=== PATIENT | female | born 2000 | race Caucasian/White ===

== ENCOUNTER 2023-09-25 21:36 | Emergency (ER) | payer OTHER, SELFPAY ==
[2023-09-25 21:50] VITALS: BP 134/76; PULSE 98; RESP 18; TEMP 39.4; O2SAT 97; BMI 31.8
[2023-09-25] MEDS: Ibuprofen 800 MG TABLET PO (21:59)
[2023-09-25] MEDS: Ondansetron ODT 4 MG TAB.RAPDIS TRANSLINGU (21:59)
[2023-09-25 22:36] LABS: Influenza A PCR POSITIVE (Negative); Influenza B PCR NEGATIVE (Negative); Resp Syncy Virus RNA Qual PCR NEGATIVE (Negative); SARS COV2 PCR INHOUSE NEGATIVE (Negative)
--- NOTE | 2023-09-25 22:40 | ED_ITS ---
HPI - Nausea/Vomiting/Diarrhea General Chief complaint: Nausea/Vomiting/Diarrhea Stated complaint: vomiting all day, stomach pain Time Seen by Provider: 09/25/23 22:30 Source: patient Mode of arrival: ambulatory Limitations: no limitations History of Present Illness HPI Narrative: 23 yo female with 36 hours of URI symptoms, fevers, nausea and vomiting, coughing, congestion and feeling ill. She is not vaccinated against flu. Temp was 100.7 - given tylenol [employer]FORMATION [employer]IST. She notes she is feeling better now after motrin and zofran in triage. No travel hx at this time MD elicited complaint: nausea, vomiting and other (URI symptoms) Onset (ago): hour(s) (36) Description of vomiting: watery Associated nausea: Yes Location of pain: epigastric Pain consistency: intermittent Severity: mild Quality: aching Exacerbating factors: eating Relieving factors: none Associated symptoms: cough, fever/chills, headaches, loss of appetite, malaise, nausea/vomiting and other (sore throat , runny nose) Treatment prior to arrival: other (tylenol) Related Data Previous Rx's Medication Instructions Recorded ondansetron 4 mg disintegrating 4 mg PO Q8H PRN nausea and 09/25/23 tablet vomiting #20 tabs oseltamivir 75 mg capsule (Tamiflu) 75 mg PO BID 5 days #10 caps 09/25/23 Allergies Allergy/AdvReac Type Severity Reaction Status Date / Time No Known Allergies Allergy Verified 09/25/23 21:49 Review of Systems Review of Systems: Constitutional : positive Fever, positive Chills, positive fatigue, positive Malaise ENT/Mouth : positive sore throat, positive runny nose Eyes: No Discharge Cardiovascular : No Chest Pain, No SOB Respiratory : pos Cough, No Sputum Gastrointestinal : pos Nausea, pos Vomiting, No Diarrhea Genitourinary : No Dysuria, No Urinary Frequency Musculoskeletal : positive Myalgia Skin : No rash Neuro : No Headache All other systems reviewed and are negative Gastrointestinal: Gastrointestinal: Reports nausea PMFSH Past Medical History Attestation statement: The following information was validated with the patient. Source: old records reviewed Medical History No pertinent past medical history Social History Social History (Updated 09/25/23 @ 23:34 by Daphne Smith DO) Patient Tobacco Use Status: Never used Tobacco Physical Exam Vital Signs: Vital Signs: Last Vital Signs Temp 102.9 F H 09/25/23 21:50 Pulse 98 09/25/23 21:50 Resp 18 09/25/23 21:50 BP 134/76 09/25/23 21:50 Pulse Ox 97 09/25/23 21:50 O2 Del Method Room Air 09/25/23 21:50 BMI result Body Mass Index 31.8 Appearance: Alert. Oriented X3. No acute distress. drinking jairon taylor Eyes: Pupils equal, round and reactive to light. ENT: Pharynx normal. MMM Neck: Normal inspection. Neck supple. CVS: Normal heart rate and rhythm. Pulses normal. Respiratory: No respiratory distress. Breath sounds normal. Abdomen: Soft and nontender. Skin: Skin warm and dry. Normal skin color. Normal skin turgor. Extremities: No lower extremity edema. No calf ttp Neuro: Oriented X 3. No motor deficit. No sensory deficit. Medications Administered Discontinued Medications Generic Name Dose Route Start Last Admin Trade Name Freq PRN Reason Stop Dose Admin Ibuprofen 800 mg 09/25/23 21:56 09/25/23 21:59 Ibuprofen 800 Mg Tablet PO 09/25/23 21:57 800 mg ONCE ONE Administration Ondansetron HCl 4 mg 09/25/23 21:56 09/25/23 21:59 Ondansetron Odt 4 Mg Tab.Rapdis TRANSLINGU 09/25/23 21:57 4 mg ONCE ONE Administration Medical Decision Making Medical Decision Making [facility] Narrative: 23 yo female with viral like illness, clear lungs, benign abdominal exam - tolerating PO 36 hours onset now flu A positive no signs of dehydration on exam at this time will DC home on tamiflu and zofran. After discussion wants to start tamiflu. Doubt pneumonia. Given precautions to return. Differential Diagnosis Differential Diagnoses: The differential diagnosis associated with the presentation includes viral syndrome, flu or covid Admission/Observation Consideration of admission/observation: Escalation of care including admission/observation considered VS stable, responsive to motrin, tolerating PO healthy 23 yo can be managed as outpatient Lab Data [facility] Lab Attestation statement: I reviewed the patient's lab results. Labs: Lab Results 09/25/23 Range/Units 21:55 Influenza Type A (PCR) POSITIVE A (Negative) Influenza Type B (PCR) NEGATIVE (Negative) RSV RNA Qual (PCR) NEGATIVE (Negative) SARS-CoV-2 RNA (RT-PCR) NEGATIVE (Negative) Independent Historian Clinical information obtained from an independent historian. History obtained from or confirmed by: Parent Prescription Management I considered prescription management with: Antiviral and Other Discharge Plan Discharge Clinical Impression: Influenza A Patient Disposition: Home, Self-Care Instructions: Influenza (ED) Additional Instructions: stay hydrated, alternate tylenol and motrin for fevers. drink plenty of fluids return for chest pain and difficulty breathing. Prescriptions: New ondansetron 4 mg tablet,disintegrating 4 mg PO Q8H PRN (Reason: nausea and vomiting) Qty: 20 0RF oseltamivir [Tamiflu] 75 mg capsule 75 mg PO BID 5 Days Qty: 10 0RF Stand Alone Forms: Work/School Release
[2023-09-25 23:28] VITALS: TEMP 37.6
== END 2023-09-26 00:03 | disposition home or self-care (01) ==
PROVIDERS: Emergency Provider Emergency Medicine
DX: J10.1 Influenza due to other identified influenza virus with other respiratory manifestations (principal); R11.2 Nausea with vomiting, unspecified; R05.9 Cough, unspecified; R50.9 Fever, unspecified; Z20.822 Contact with and (suspected) exposure to COVID-19; Z20.828 Contact with and (suspected) exposure to other viral communicable diseases
CPT/HCPCS: 0241U; 99283